=== PATIENT | male | born 1995 | race Caucasian/White ===

== ENCOUNTER 2021-09-09 19:33 | Emergency (ER) | payer OTHER, SELFPAY ==
--- NOTE | 2021-09-09 20:49 | ER ---
Nurse's Notes [facility] Name: Rigoberto Cox Age: 26 yrs Sex: Male : 1995 Arrival Date: 09/09/2021 Time: 19:37 Bed 14 Private MD: Diagnosis: Presentation: 09/09 19:41 Chief complaint: Patient states: I guess I had a mild seizure that lasted a really long kd3 time. I do have a history of seizure. I just looked at my phone and put it down and when I looked at my phone again, hours had passed. I have also been throwing up blood today. I don't take medications because it hasn't been officially diagnosed. Today i am very sore and my back hurts a lot. Coronavirus screen: Vaccine status: Patient reports being unvaccinated. Ebola Screen: No symptoms or risks identified at this time. Initial Sepsis Screen: Does the patient meet any 2 criteria? No. Patient's initial sepsis screen is negative. Does the patient have a suspected source of infection? No. Patient's initial sepsis screen is negative. Risk Assessment: Do you want to hurt yourself or someone else? Patient reports no desire to harm self or others. Onset of symptoms was September 09, 2021. 19:41 Method Of Arrival: Ambulatory kd3 19:41 Acuity: LUIGI 3 kd3 Triage Assessment: 19:47 General: Appears in no apparent distress. Behavior is calm, cooperative. Pain: kd3 Complains of pain in lower back ache. Neuro: Level of Consciousness is awake, alert, obeys commands, Oriented to person, place, time, situation. Historical: - Allergies: 19:47 No Known Allergies; kd3 - Home Meds: 19:47 None [Active]; kd3 - PMHx: 19:47 VHL; kd3 - Immunization history:: Adult Immunizations up to date. - Social history:: Smoking status: Reported history of juuling and/or vaping. Screenin:48 Abuse screen: Denies threats or abuse. Denies injuries from another. Nutritional kd3 screening: No deficits noted. Tuberculosis screening: No symptoms or risk factors identified. Fall Risk None identified. Vital Signs: 19:41 BP 122 / 55; Pulse 101; Resp 18; Temp 100; Pulse Ox 99% ; Weight 54.43 kg; Height 5 ft. kd3 7 in. (170.18 cm); Pain 4/10; 19:41 Body Mass Index 18.79 (54.43 kg, 170.18 cm) kd3 Burdine Coma Score: 19:47 Eye Response: spontaneous(4). Verbal Response: oriented(5). Motor Response: obeys kd3 commands(6). Total: 15. ED Course: 19:37 Patient arrived in ED. bp1 19:47 Triage completed. kd3 19:47 Arm band placed on right wrist. kd3 19:48 Patient has correct armband on for positive identification. kd3 19:48 No provider procedures requiring assistance completed. kd3 20:45 Rod Rivera PA is PHCP. cp 20:45 Marco Boland MD is Attending Physician. cp Administered Medications: No medications were administered Outcome: 20:48 Patient left the ED. kd3 20:52 Patient left the ED. kd3 Signatures: Rod Rivera PA PA cp Paniauga, Brittany bp1 Doucette, Kyli, RN RN kd3
[2021-09-09 20:56] VITALS: BP 122/55; TEMP 100; O2SAT 99
== END 2021-09-09 20:52 | disposition left against medical advice (07) ==
LOC: ER 19:33
DX: Z53.21 Procedure and treatment not carried out due to patient leaving prior to being seen by health care provider (principal)
CPT/HCPCS: 99281

== ENCOUNTER 2021-11-06 09:26 | Emergency (ER) | payer SELFPAY ==
--- OUTSIDE RECORDS SUMMARY | 2021-11-06 09:29 | XMS REPORT | Continuity of Care Document ---
:1995 Author Organization [facility] t Address [address] [place] [address] [address] [place] [address] Care Team Providers Name Role Phone VANI Attending Clinician Unavailable VANI Admitting Clinician Unavailable Payers Payer Name Policy Type Policy Number Effective Date Expiration Date S ource Problems This patient has no known problems. Allergies, Adverse Reactions, Alerts This patient has no known allergies or adverse reactions. Medications This patient has no known medications. Procedures This patient has no known procedures. Encounters Start End Encounter Admission Attending Care Care Encounter Source Date/Time Date/Time Type Type Clinicians Facility Department ID 2021-03-24 2021-03-24 Outpatient ELISABETH GUPTA [id number] 04:45:00 04:45:00 _TRES [id number] da [facility] Program Results This patient has no known results.
[2021-11-06 10:26] LABS: Absolute Lymphocytes (CBC) 0.9 K/uL (0.7-4.9); Lymphocytes % 12.5 % (15.3-44.8); MCV 88.9 fL (80-100); RBC Red Blood Cell Count 4.51 M/uL (4.33-5.43)
[2021-11-06] MEDS ORDERED: NA CHLORIDE 0.9% 1,000 ML ONE (10:29)
[2021-11-06] MEDS ORDERED: KETOROLAC 30 MG/ML INJ ONE (10:29)
[2021-11-06] MEDS ORDERED: ONDANSETRON 4 MG/2 ML VIAL ONE (10:29)
[2021-11-06 10:45] LABS: Albumin 4.7 g/dL (3.4-5.0); Bilirubin Direct 0.3 mg/dL (0-0.2); Bilirubin Total 1.2 mg/dL (0.2-1.0); Potassium 3.6 mmol/L (3.5-5.1); Protein, Total 8.1 g/dL (6.4-8.2); Troponin High Sensitivity 5.4 pg/mL (<58.9)
--- NOTE | 2021-11-06 10:50 | RAD REPORT ---
EXAM DESCRIPTION: CT - Head C Spine Cap Varghese Thornton - 11/06/2021 10:42 am CLINICAL HISTORY: Left shoulder chest abdominal pain COMPARISON: <Comparisons> TECHNIQUE: CT head without contrast. CT cervical spine without contrast with coronal and sagittal reformatted images. CT chest, abdomen and pelvis with coronal and sagittal reformatted images of the spine. All CT scans are performed using dose optimization technique as appropriate and may include automated exposure control or mA/KV adjustment according to patient size. FINDINGS: CT HEAD WITHOUT CONTRAST: No intracranial hemorrhage, hydrocephalus or extra-axial fluid collection. No acute large vascular te rritory infarct. Mild bilateral maxillary sinus thickening. The calvarium is intact. CT CERVICAL SPINE WITHOUT CONTRAST: No fracture or subluxation. The prevertebral soft tissues are normal in thickness. CT CHEST, ABDOMEN, PELVIS: Thorax: Chest Wall: No abnormal mass Lungs: No acute abnormality. Pleura: No effusions or pneumothorax. Keely/Mediastinum: No lymphadenopathy. Aorta/Pulmonary Arteries: Unremarkable Heart: Normal size. Abdomen/Pelvis: Liver: No acute abnormality or suspicious lesions. Biliary: No biliary ductal dilatation. Stomach: No significant focal abnormality. Duodenum: No significant focal abnormality. Pancreas: No significant abnormality. Spleen: No significant abnormality. Adrenal: No suspicious lesions. Kidney/ureter: No hydronephrosis. No renal calculi. Subcentimeter left renal lesion which is likely a cyst. Retroperitoneum: No retroperitoneal adenopathy. Vascular: No aneurysm. Bowel: No significant focal abnormality. Peritoneum: No ascites or free air. Bladder: Grossly unremarkable. Reproductive: No adnexal masses. Bones: No acute fracture. Mild disc height loss at L5-S1. Other: n/a IMPRESSION: Negative for acute traumatic findings.
[2021-11-06 10:57] LABS: Urine Blood Negative (Negative); Urine Glucose Negative (Negative); Urine Protein 2+ (Negative); Urine Specific Gravity 1.025 (1.005-1.030); Urine pH 6.5 (5.0-7.0)
--- NOTE | 2021-11-06 10:58 | ER ---
Nurse's Notes [facility] Name: Rigoberto Cox Age: 26 yrs Sex: Male : 1995 Arrival Date: 11/06/2021 Time: 09:27 Bed 4 Private MD: Diagnosis: Anxiety disorder, unspecified;Unspecified symptoms and signs involving the musculoskeletal system;Other acute sinusitis Presentation: 11/06 09:39 Chief complaint: Patient states: Left shoulder pain x 1 week, seen in [place] on kr3 , now pain is in shoulder goes across chest to abdomen and around to back on left side. Coronavirus screen: Vaccine status: Patient reports being unvaccinated. Client denies travel out of the [place] in the last 14 days. Ebola Screen: Patient denies travel to an Ebola-affected area in the 21 days before illness onset. Initial Sepsis Screen: Does the patient meet any 2 criteria? No. Patient's initial sepsis screen is negative. Does the patient have a suspected source of infection? No. Patient's initial sepsis screen is negative. Risk Assessment: Do you want to hurt yourself or someone else? Patient reports no desire to harm self or others. Onset of symptoms was October 30, 2021. 09:39 Method Of Arrival: Ambulatory kr3 09:39 Acuity: LUIGI 3 kr3 Triage Assessment: 09:43 General: Appears in no apparent distress. uncomfortable, Behavior is calm, cooperative, kr3 appropriate for age. 10:00 Pain: Denies pain. Musculoskeletal: Circulation, motion, and sensation intact. ko1 Capillary refill < 3 seconds, is brisk. Historical: - PMHx: 09:42 VHL; kr3 - Immunization history:: Client reports having NOT received the Covid vaccine. - Social history:: Smoking status: Reported history of juuling and/or vaping. Patient/guardian denies using tobacco, the patient reports quitting approximately 1 years ago. Screenin:00 Abuse screen: Denies threats or abuse. Denies injuries from another. Nutritional ko1 screening: No deficits noted. Tuberculosis screening: No symptoms or risk factors identified. Fall Risk None identified. Assessment: 10:00 Neuro: No deficits noted. ko1 Vital Signs: 09:39 BP 134 / 84; Pulse 66; Resp 16; Temp 99.3; Pulse Ox 100% on R/A; Weight 54.43 kg; kr3 Height 5 ft. 7 in. (170.18 cm); 10:30 BP 134 / 92; Pulse 65; Resp 18; Pulse Ox 100% ; ko1 11:06 BP 124 / 75; Pulse 64; Resp 16; Temp 98.2; Pulse Ox 100% ; Pain 0/10; ko1 09:39 Body Mass Index 18.79 (54.43 kg, 170.18 cm) kr3 Vitals: 10:00 Cardiac Rhythm Assessment Regular Sinus rhythm. ko1 ED Course: 09:27 Patient arrived in ED. rg4 09:34 Arm band placed on Patient placed in an exam room, on a stretcher. ss 09:39 Sheeba Chang, RN is Primary Nurse. ko1 09:42 Triage completed. kr3 09:43 Rod Hernandez MD is Attending Physician. adelita 10:00 Patient has correct armband on for positive identification. Bed in low position. Call ko1 light in reach. Side rails up X 1. 10:00 No provider procedures requiring assistance completed. Inserted saline lock: 18 gauge ko1 in right antecubital area, using aseptic technique. Blood collected. 10:43 CT Traumagram (Head C Spine CAP W Con) In Process Unspecified. EDMS 11:11 IV discontinued, intact, bleeding controlled, No redness/swelling at site. Pressure ko1 dressing applied. Administered Medications: 10:20 Drug: Ketorolac 30 mg Route: IVP; Site: right antecubital; ko1 10:20 Drug: Zofran (Ondansetron) 4 mg Route: IVP; Site: right antecubital; ko1 10:47 Drug: NS 0.9% 1000 ml Route: IV; Rate: 1 bolus; Site: right antecubital; ko1 Medication: 10:00 VIS not applicable for this client. ko1 Outcome: 10:00 Condition: stable ko1 10:00 Discharge instructions given to patient, Instructed on discharge instructions, follow up and referral plans. Demonstrated understanding of instructions, follow-up care, medications, Prescriptions given X 2. 10:58 Discharge ordered by . adelita 11:11 Discharged to home ambulatory. ko1 11:17 Patient left the ED. ko1 Signatures: Dispatcher [employer] EDID Rod Hernandez MD MD cha Smirch, Shelby, RN RN ss Renetta Gates rg4 Joaquina Valderrama, RN RN kr3 Sheeba Chang, RN RN ko1
--- NOTE | 2021-11-06 10:58 | EDPHYS ---
Physician Documentation [facility] Name: Rigoberto Cox Age: 26 yrs Sex: Male : 1995 Arrival Date: 11/06/2021 Time: 09:27 Bed 4 Private MD: ROMAN Physician Rod Hernandez HPI: 11/06 10:45 This 26 yrs old Male presents to ER via Ambulatory with complaints of adelita Shoulder Pain, Back Pain, Abdominal Pain. Historical: - PMHx: 09:42 VHL; kr3 - Immunization history:: Client reports having NOT received the Covid vaccine. - Social history:: Smoking status: Reported history of juuling and/or vaping. Patient/guardian denies using tobacco, the patient reports quitting approximately 1 years ago. ROS: 10:48 Constitutional: Negative for fever, chills, and weight loss, Eyes: Negative for injury, adelita pain, redness, and discharge, ENT: Negative for injury, pain, and discharge, Neck: Negative for injury, pain, and swelling, Respiratory: Negative for shortness of breath, cough, wheezing, and pleuritic chest pain, Abdomen/GI: Negative for abdominal pain, nausea, vomiting, diarrhea, and constipation, : Negative for injury, bleeding, discharge, and swelling, MS/Extremity: Negative for injury and deformity, Skin: Negative for injury, rash, and discoloration, Neuro: Negative for headache, weakness, numbness, tingling, and seizure, Psych: Negative for depression, anxiety, suicide ideation, homicidal ideation, and hallucinations, Allergy/Immunology: Negative for hives, rash, and allergies, Endocrine: Negative for neck swelling, polydipsia, polyuria, polyphagia, and marked weight changes, Hematologic/Lymphatic: Negative for swollen nodes, abnormal bleeding, and unusual bruising. 10:48 Cardiovascular: Positive for chest pain, with movement. 10:48 Back: Positive for decreased range of motion, pain with movement. Exam: 10:48 Constitutional: This is a well developed, well nourished patient who is awake, alert, adelita and in no acute distress. Head/Face: Normocephalic, atraumatic. Eyes: Pupils equal round and reactive to light, extra-ocular motions intact. Lids and lashes normal. Conjunctiva and sclera are non-icteric and not injected. Cornea within normal limits. Periorbital areas with no swelling, redness, or edema. ENT: Nares patent. No nasal discharge, no septal abnormalities noted. Tympanic membranes are normal and external auditory canals are clear. Oropharynx with no redness, swelling, or masses, exudates, or evidence of obstruction, uvula midline. Mucous membranes moist. Neck: Trachea midline, no thyromegaly or masses palpated, and no cervical lymphadenopathy. Supple, full range of motion without nuchal rigidity, or vertebral point tenderness. No Meningismus. Chest/axilla: Normal chest wall appearance and motion. Nontender with no deformity. No lesions are appreciated. Cardiovascular: Regular rate and rhythm with a normal S1 and S2. No gallops, murmurs, or rubs. Normal PMI, no JVD. No pulse deficits. Respiratory: Lungs have equal breath sounds bilaterally, clear to auscultation and percussion. No rales, rhonchi or wheezes noted. No increased work of breathing, no retractions or nasal flaring. Abdomen/GI: Soft, non-tender, with normal bowel sounds. No distension or tympany. No guarding or rebound. No evidence of tenderness throughout. Back: No spinal tenderness. No costovertebral tenderness. Full range of motion. Male : Normal genitalia with no discharge or lesions. Skin: Warm, dry with normal turgor. Normal color with no rashes, no lesions, and no evidence of cellulitis. MS/ Extremity: Pulses equal, no cyanosis. Neurovascular intact. Full, normal range of motion. Neuro: Awake and alert, GCS 15, oriented to person, place, time, and situation. Cranial nerves II-XII grossly intact. Motor strength 5/5 in all extremities. Sensory grossly intact. Cerebellar exam normal. Normal gait. Psych: Awake, alert, with orientation to person, place and time. Behavior, mood, and affect are within normal limits. 11:16 Cardiovascular: Exam negative for adelita 11:16 ECG was reviewed by the Attending Physician. Vital Signs: 09:39 BP 134 / 84; Pulse 66; Resp 16; Temp 99.3; Pulse Ox 100% on R/A; Weight 54.43 kg; kr3 Height 5 ft. 7 in. (170.18 cm); 10:30 BP 134 / 92; Pulse 65; Resp 18; Pulse Ox 100% ; ko1 11:06 BP 124 / 75; Pulse 64; Resp 16; Temp 98.2; Pulse Ox 100% ; Pain 0/10; ko1 09:39 Body Mass Index 18.79 (54.43 kg, 170.18 cm) kr3 MDM: 09:43 Patient medically screened. [facility] 10:49 Differential diagnosis: tendonitis. Data reviewed: vital signs, nurses notes, lab test [facility] result(s), EKG, radiologic studies, CT scan. Data interpreted: junior web designer: rate is 66 beats/min, rhythm is regular, Pulse oximetry: on room air is 100 %. Test interpretation: by ED physician or midlevel provider: ECG. Counseling: I had a detailed discussion with the patient and/or guardian regarding: the historical points, exam findings, and any diagnostic results supporting the discharge/admit diagnosis, lab results, radiology results, the need for outpatient follow up, for definitive care, a family practitioner. 11/06 09:56 Order name: Basic Metabolic Panel; Complete Time: 10:56 [facility] 11/06 09:56 Order name: CBC with Diff; Complete Time: 10:56 [facility] 11/06 09:56 Order name: LFT's; Complete Time: 10:56 [facility] 11/06 09:56 Order name: Lipase; Complete Time: 10:56 [facility] 11/06 09:56 Order name: Troponin High Sensitivity; Complete Time: 10:56 [facility] 11/06 09:56 Order name: CT Traumagram (Head C Spine CAP W Con); Complete Time: 10:56 [facility] 11/06 09:56 Order name: Labs collected and sent; Complete Time: 10:28 [facility] 11/06 09:56 Order name: Urine Dipstick-Ancillary (obtain specimen); Complete Time: 10:55 [facility] 11/06 09:56 Order name: EKG; Complete Time: 09:57 [facility] 11/06 10:57 Order name: Urine Dipstick-Ancillary EDWI 11/06 09:56 Order name: EKG - Nurse/Tech; Complete Time: 10:28 [facility] EC:16 Rate is 66 beats/min. Rhythm is regular. QRS Golden is Normal. LA interval is normal. QRS adelita interval is normal. QT interval is normal. No Q waves. T waves are Normal. No ST changes noted. Clinical impression: Normal ECG and No evidence of ischemia. Interpreted by me. Reviewed by me. Administered Medications: 10:20 Drug: Ketorolac 30 mg Route: IVP; Site: right antecubital; ko1 10:20 Drug: Zofran (Ondansetron) 4 mg Route: IVP; Site: right antecubital; ko1 10:47 Drug: NS 0.9% 1000 ml Route: IV; Rate: 1 bolus; Site: right antecubital; ko1 Disposition Summary: 11/06/21 10:58 Discharge Ordered Location: Home adelita Problem: new adelita Symptoms: have improved adelita Condition: Stable adelita Diagnosis - Anxiety disorder, unspecified adelita - Unspecified symptoms and signs involving the musculoskeletal system adelita - Other acute sinusitis adelita Followup: adelita - With: Private Physician - When: 2 - 3 days - Reason: Recheck today's complaints, Continuance of care, Re-evaluation by your physician Discharge Instructions: - Discharge Summary Sheet adelita - Panic Attack adelita - Panic Attack, [id number]-Logy adelita - Supporting Someone With Anxiety adelita - Sinusitis, Adult adelita - Sinusitis, Adult, [id number]-fc-Ktks [facility] Forms: - Medication Reconciliation Form [facility] - Thank You Letter adelita - Antibiotic Education adelita - Prescription Opioid Use adelita - Work release form eb Prescriptions: - Hydroxyzine HCl 25 mg Oral Tablet - take 1 tablet by ORAL route every 6 hours As needed; 30 tablet; Refills: 0, [facility] Product Selection Permitted - Augmentin 875-125 mg Oral Tablet - take 1 tablet by ORAL route every 12 hours for 10 days; 20 tablet; Refills: 0, [facility] Product Selection Permitted Signatures: Dispatcher [employer] EDRod Oconnor MD MD cha Reid, Kelley RN RN kr3 Sheeba Chang RN RN ko1 Corrections: (The following items were deleted from the chart) 10:51 09:57 TYPE AND SCREEN+[id number] ordered. EDWI EDMS
[2021-11-06 12:23] VITALS: O2SAT 100
[2021-11-06 12:42] VITALS: BP 124/75; TEMP 98.2
--- NOTE | 2021-11-08 15:09 | EKG ---
Test Date: 2021-11-06 Test Time: 10:16:42 Occupational Health And Safety Officer: PH MEASUREMENT RESULTS: Intervals: Rate: 66 WY: 144 QRSD: 92 QT: 380 QTc: 398 [place]: P: 21 WY: 144 QRS: 70 T: 38 INTERPRETIVE STATEMENTS: Normal sinus rhythm Normal ECG No previous ECG available for comparison Electronically Signed On 11-08-21 15:08:40 CDT by Fabian Green
== END 2021-11-06 11:17 | disposition home or self-care (01) ==
LOC: ER 09:26
DX: F41.9 Anxiety disorder, unspecified (principal); R29.91 Unspecified symptoms and signs involving the musculoskeletal system; J01.80 Other acute sinusitis
CPT/HCPCS: 36415; 70450; 71260; 72125; 74177; 80048; 80076; 81003; 83690; 84484; 85025; 93005; 96374; 96375; 99284; J2405; J7030; Q9967